=== PATIENT | male | born 1960 | race Caucasian/White ===

== ENCOUNTER 2020-01-05 21:09 | Emergency (ER) | payer OTHER ==
--- NOTE | 2020-01-05 22:02 | EDM.PDOC ---
ED HPI GENERAL MEDICAL PROBLEM - General Chief Complaint: Laceration Stated Complaint: FISH HOOK LT POINTER FINGER Time Seen by Provider: 01/05/20 21:34 Source of Information: Reports: Patient, RN History Limitations: Reports: No Limitations - History of Present Illness INITIAL COMMENTS - FREE TEXT/NARRATIVE: Presents with single hook in left index finger. Patient had already removed hook from remainder of tackle. A small barbed and remained protruding from the skin. 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 Other Musculoskeletal Surgeries/Procedures:: knee surgery torn meniscus Social & Family History - Family History Family Medical History: Noncontributory - Tobacco Use Smoking Status *Q: Never Smoker - Alcohol Use Days Per Week of Alcohol Use: 5 Number of Drinks Per Day: 1 Total Drinks Per Week: 5 - Recreational Drug Use Recreational Drug Use: No ED ROS GENERAL - Review of Systems Review Of Systems: See Below Constitutional: Reports: No Symptoms HEENT: Reports: No Symptoms Respiratory: Reports: No Symptoms Cardiovascular: Denies: Chest Pain, Blood Pressure Problem, Lightheadedness, Palpitations Endocrine: Reports: No Symptoms Musculoskeletal: Reports: Muscle Pain (index finger left hand) Skin: Reports: Other (imbedded single barbed fish hook) Neurological: Denies: Numbness, Tingling Psychiatric: Reports: No Symptoms ED EXAM, SKIN/RASH Exam: See Below Exam Limited By: No Limitations General Appearance: Alert, WD/WN, No Apparent Distress Peripheral Pulses: 2+: Radial (R) Extremities: Normal Capillary Refill, Other (left index finger, swelling, minor bleeding). No: Normal Inspection, Normal Range of Motion Neurological: Alert, Oriented, CN II-XII Intact, Normal Cognition Skin: Warm, Wound/Incision (single katharine fish imbedded in left indext finger) Location, Skin: Upper Extremity, Left (index finger) ED SKIN PROCEDURES - Foreign Body Removal Consent Obtained:: Patient Performing Doctor:: Sanna Irizarry Foreign Body Other Location Comment:: Left index finger Anesthesia Type: Local Findings:: Single barbed hook Complications:: No Comments:: Removed single barbed fishing hook from index finger after verbal consent obtained. Pt with no allergies. Injected 2cc of 1% lidocaine along hook at insertion and exit point. Pt identified no feeling at the site of the hook. Due to inability to grab hook with pliers as hook was trimmed close to the skin, a small incision at the barbed end of the hook was made. Using needle nose pliers, hook was removed with some difficulty. Pt tolerated the procedure well. Feeling distal to the hook remains in tact. Pt able to flex finger and make closed fist after removal. Course - Vital Signs Last Recorded V/S: Last Vital Signs Temp 36.8 C 01/05/20 21:26 Pulse 83 01/05/20 21:26 Resp 16 01/05/20 21:26 BP 150/117 H 01/05/20 21:26 Pulse Ox 96 01/05/20 21:26 - Orders/Labs/Meds Meds: Medications Discontinued Medications Generic Name Dose Route Start Last Admin Trade Name Urbanoq PRN Reason Stop Dose Admin Lidocaine HCl 5 ml 01/05/20 21:36 01/05/20 21:40 Xylocaine-Mpf 1% INJECT 01/05/20 21:37 5 ml ONETIME ONE Administration - Re-Assessments/Exams Free Text/Narrative Re-Assessment/Exam: 01/05/20 22:13 Sensation distal to the fish hook was maintained. Pt able to make a closed fist. ROM intact. Pt tolerated fish hook removal without difficulty - Tetanus addressed and current as of 2016 Departure - Departure Time of Disposition: 22:15 Disposition: Home, Self-Care 01 Condition: Good Clinical Impression: Removal of foreign body [place] injury to finger Qualifiers: Encounter type: initial encounter Laterality: left Qualified Code(s): S69.92XA - Unspecified injury of left wrist, hand and finger(s), initial encounter - Discharge Information *PRESCRIPTION DRUG MONITORING PROGRAM REVIEWED*: No *COPY OF PRESCRIPTION DRUG MONITORING REPORT IN PATIENT NOMAN: No Instructions: Puncture Wound, [id number] Referrals: PCP,None [Primary Care Provider] - Additional Instructions: Monitor for signs and symptoms of infection Care Plan Goals: follow up with primary care as needed Sepsis Event Note (ED) - Evaluation Sepsis Screening Result: No Definite Risk - Focused Exam Vital Signs: Vital Signs Temp Pulse Resp BP Pulse Ox 01/05/20 21:26 36.8 C 83 16 150/117 H 96
== END 2020-01-05 22:15 | disposition home or self-care (01) ==
LOC: JP.ED 21:09
DX: S60.451A Superficial foreign body of left index finger, initial encounter (principal); E78.00 Pure hypercholesterolemia, unspecified; Z79.899 Other long term (current) drug therapy; Z86.73 Personal history of transient ischemic attack (TIA), and cerebral infarction without residual deficits; Z91.048 Other nonmedicinal substance allergy status; W45.8XXA Other foreign body or object entering through skin, initial encounter
CPT/HCPCS: 10120; 99283; J2001; 99282